=== PATIENT | female | born 1960 | race Caucasian/White ===

== ENCOUNTER 2018-05-01 15:09 | Inpatient (IN) | payer BC ==
[~2018-05-01] VITALS: Ht 147.3 cm; Wt 44.9 kg
[2018-05-01] MEDS ORDERED: ONDANSETRON 2MG/ML, 2ML ONE (16:22)
[2018-05-01] MEDS ORDERED: hydrALAzine 20 MG/ML, 1ML IVPush PRN (16:30)
[2018-05-01] MEDS ORDERED: morphine SULFATE 10 MG/ML, 1ML IVPush PRN (16:30)
[2018-05-01] MEDS ORDERED: ONDANSETRON 2MG/ML, 2ML IVPush ONE (16:30)
[2018-05-01] MEDS ORDERED: NITROGLYCERIN 0.4 MG BOTTLE (25 TABS) SL PRN (16:30)
[2018-05-01] MEDS ORDERED: LABETALOL 5MG/ML, 20ML IVPush PRN (16:30)
[2018-05-01] MEDS ORDERED: ONDANSETRON 2MG/ML, 2ML IVPush PRN (16:30)
[2018-05-01 17:16] LABS: HEMOGLOBIN A1C 4.8 % (4.2-6.3)
[2018-05-01 17:38] VITALS: BP 138/96
[2018-05-01 18:54] VITALS: BP 119/71
[2018-05-01 21:13] VITALS: BP 145/78
[2018-05-02 00:29] VITALS: BP 155/97
[2018-05-02 05:43] LABS: BASOPHILS # (AUTO) 0.01 x10^3/uL (0-0.1); BASOPHILS % (AUTO) 0 % (0-1); EOSINOPHILS # (AUTO) 0.05 x10^3/uL (0-0.4); EOSINOPHILS % (AUTO) 1 % (1-7); LYMPHOCYTES # (AUTO) 2.06 x10^3/uL (1-3.4); LYMPHOCYTES % (AUTO) 27 % (22-44); MD NO; MEAN CORPUSCULAR HEMOGLOBIN 31.9 pg (27.0-34.8); MEAN CORPUSCULAR HGB CONC 34.6 g/dL (32.4-35.8); MEAN CORPUSCULAR VOLUME 92.2 fL (80-100); MEAN PLATELET VOLUME 7.4 fL (7.4-10.4); MONOCYTES # (AUTO) 0.55 x10^3/uL (0.2-0.8); MONOCYTES % (AUTO) 7 % (2-9); NEUTROPHILS # (AUTO) 4.84 x10^3/uL (1.8-6.8); NEUTROPHILS % (AUTO) 64 % (42-75); PLATELET COUNT 237 x10^3/uL (130-400); RED BLOOD COUNT 4.35 x10^6/uL (3.82-5.3); RED CELL DISTRIBUTION WIDTH 12.7 % (9.6-15.2)
[2018-05-02 05:57] LABS: CHLORIDE 108 mmol/L (98-107)
[2018-05-02 06:04] LABS: ALANINE AMINOTRANSFERASE 34 U/L (12-78); ALBUMIN 3.7 g/dL (3.4-5.0); ALKALINE PHOSPHATASE 56 U/L (45-117); ANION GAP 8 mmol/L (5-15); BILIRUBIN,TOTAL 0.6 mg/dL (0.2-1.0); CALCIUM 8.3 mg/dL (8.5-10.1); CHOL/HDL RATIO 2.4; CHOLESTEROL, TOTAL 141 mg/dL (140-239); CREATININE 0.65 mg/dL (0.55-1.02); HDL CHOL % 42 % (28-40); HDL CHOLESTEROL (DIRECT) 59 mg/dL (40-60); LDL CHOLESTEROL,CALCULATED 62 mg/dL (54-169); LDL/HDL RATIO 1.1 (0.5-3.0); TRIGLYCERIDES 99 mg/dL (50-200); VLDL CHOLESTEROL 20 mg/dL (0-25)
[2018-05-02 06:53] VITALS: BP 144/92
[2018-05-02] MEDS ORDERED: POTASSIUM CHLORIDE 40 MEQ in SODIUM CHLORIDE 0.9% 500 ML IV ONE (07:30)
[2018-05-02] MEDS ORDERED: ENOXAPARIN 40 MG/0.4 ML SQ SCH (11:30)
[2018-05-02] MEDS ORDERED: FENTANYL PF 100 MCG/2ML ONE (12:26)
[2018-05-02] MEDS ORDERED: MIDAZOLAM 1 MG/ML, 5ML ONE (12:26)
[2018-05-02] MEDS ORDERED: BIVALIRUDIN 250 MG ONE (12:27)
[2018-05-02] MEDS ORDERED: TICAGRELOR 90 MG TABLET ONE (12:27)
[2018-05-02] MEDS ORDERED: VERAPAMIL 2.5 MG/ML, 2ML ONE (12:27)
[2018-05-02] MEDS ORDERED: HEPARIN 1,000 UNITS/ML, 10ML ONE (12:27)
[2018-05-02] MEDS ORDERED: LIDOCAINE-MPF 2%, 2ML ONE (12:27)
[2018-05-02] MEDS: ACETAMINOPHEN 500 MG TABLET PO PRN ×2 (15:02→18:55)
[2018-05-02 15:18] VITALS: BP 141/91
[2018-05-02 19:31] VITALS: BP 104/66
[2018-05-02] MEDS: ATORVASTATIN 40 MG TABLET PO SCH (20:00)
[2018-05-03 01:12] VITALS: BP 116/75
[2018-05-03] MEDS: ACETAMINOPHEN 500 MG TABLET PO PRN (03:16)
[2018-05-03] MEDS: ASPIRIN 81 MG TABLET EC PO SCH (05:31)
[2018-05-03 06:54] VITALS: BP 124/71
[2018-05-03] MEDS: CLOPIDOGREL 75 MG TABLET PO SCH (10:51)
[2018-05-03 13:07] VITALS: BP 112/78
[2018-05-03] MEDS ORDERED: METOPROLOL SUCCINATE 25 MG TAB.ER.24H PO SCH (18:00)
[2018-05-03 18:08] VITALS: BP 133/79
[2018-05-03 19:28] VITALS: BP 120/75
[2018-05-03] MEDS: ATORVASTATIN 40 MG TABLET PO SCH (20:10)
[2018-05-04 01:05] VITALS: BP 113/76
[2018-05-04] MEDS: ASPIRIN 81 MG TABLET EC PO SCH (05:16)
[2018-05-04 07:29] VITALS: BP 112/73
[2018-05-04] MEDS: CLOPIDOGREL 75 MG TABLET PO SCH (09:26)
[2018-05-04] MEDS ORDERED: LISINOPRIL 5 MG TABLET PO SCH (13:00)
[2018-05-04 13:09] VITALS: BP 121/83
[2018-05-04] MEDS ORDERED: NITR0.4T SL (14:04)
[2018-05-04] MEDS ORDERED: CLOP75TA PO (14:04)
[2018-05-04] MEDS ORDERED: ATOR40TA78 PO (14:04)
[2018-05-04] MEDS ORDERED: LISI5TAB7 PO (14:04)
[2018-05-04] MEDS ORDERED: ASPI-621 PO (14:04)
[2018-05-04] MEDS ORDERED: METO25TA91 PO (14:04)
[2018-05-04 14:16] VITALS: BP 120/76
== END 2018-05-04 16:23 | disposition home or self-care (01) | DRG 287 ==
LOC: ED 15:36 → EDIP 15:41 → 5SO 17:30 → DCLOUNGE 05-04 16:00
PROVIDERS: ADMIT Hospitalist; ATTEND Hospitalist
PROC: 4A023N7 Measurement of Cardiac Sampling and Pressure, Left Heart, Percutaneous Approach (ICD-10-PCS; principal; 2018-05-02)
PROC: B2111ZZ Fluoroscopy of Multiple Coronary Arteries using Low Osmolar Contrast (ICD-10-PCS; 2018-05-02)
PROC: B2151ZZ Fluoroscopy of Left Heart using Low Osmolar Contrast (ICD-10-PCS; 2018-05-02)
DX: I42.9 Cardiomyopathy, unspecified (principal); I51.81 Takotsubo syndrome; F41.9 Anxiety disorder, unspecified; I25.2 Old myocardial infarction; Z79.82 Long term (current) use of aspirin; Z87.891 Personal history of nicotine dependence
CPT/HCPCS: 36415; 80053; 80061; 83036; 84443; 84484; 85025; 93005; 93306; 93458; 99156; 99291; C1769; C1894; J0583; J1644; J2250; J2405; J3010; J3480; J3490; J2270; J7040; Q9967